=== PATIENT | female | born 1945 | race Caucasian/White ===

== ENCOUNTER → 2016-12-24 16:58 | Outpatient (CLI) | payer MEDICARE, OTHER ==
[2016-01-13 20:31] VITALS: BMI 34.6
[~2016-12-24 16:58] MED LIST: AMBIEN5 MG PO; ASPIRIN EC81 M1 PO; ATARAX 25 MG TA25 MG PO; BUSPAR10 MG PO; FERROUS SULFAT325 MG PO; FRESHKOTE EACH EYE; HYDROCODONE-APA1 TAB PO; LIPITOR40 MG PO; MYSOLINE 50 MG50 MG PO; NEURONTIN 400400 MG PO; PRILOSEC20 MG PO; PROAIR HFA8.5 GM INH; PROZAC40 MG PO; RESTASIS EYE DR30 EA EACH EYE; SULINDAC200 MG PO; SYNTHROID50 MCG PO; TENORMIN50 MG PO; VALIUM 2 MG TAB2 MG PO; VESICARE5 MG PO; WELLBUTRIN100 MG PO
== END | disposition home or self-care (01) ==
LOC: D.MAMMO 11:30
DX: Z12.31 Encounter for screening mammogram for malignant neoplasm of breast (principal)

== ENCOUNTER 2017-05-10 13:25 | Emergency (ER) | payer MEDICARE, OTHER ==
[2016-01-13 20:31] VITALS: BMI 34.6
[2017-05-10 14:12] LABS: BASOPHILS 0.2 % (0-2); EOSINOPHILS 0 % (0-7); HEMATOCRIT 36.7 % (36.0-48.0); HEMOGLOBIN 11.6 g/dL (12-16); IMMATURE GRANULOCYTES 0.5 % (0-5); LYMPHOCYTES 12.9 % (15-50); MCH 28.7 pg (26.0-34.0); MCHC 31.6 g/dL (31.0-37.0); MCV 90.8 fL (80.0-100.0); MEAN PLATELET VOLUME 10.7 fL (7.4-10.4); MONOCYTES 6.2 % (2-11); NEUTROPHILS 80.2 % (40-80); PLATELET COUNT 215 10x3/uL (130-400); RBC 4.04 10x6/uL (4.00-5.40); RDW 15.1 % (11.5-14.5); WBC 13.2 10x3/uL (4.8-10.8)
[2017-05-10 14:25] LABS: BILIRUBIN - TOTAL 0.75 mg/dL (0.2-1.3); CALCIUM 8.5 mg/dL (8.5-10.1); CARBON DIOXIDE 26.7 mmol/L (21.0-32.0); CREATININE - SERUM 1.7 mg/dL (0.6-1.3); POTASSIUM - SERUM 3.7 mmol/L (3.5-5.1); PROTEIN - SERUM 7.2 g/dL (6.4-8.2)
[2017-05-10 18:43] LABS: APPEARANCE HAZY (CLEAR); COLOR DK YELLOW (YELLOW); SPECIFIC GRAVITY 1.015 (1.005-1.020)
[2017-05-10 18:44] LABS: BACTERIA MANY /hpf (NONE SEEN); BILIRUBIN NEGATIVE (NEGATIVE); GLUCOSE NEGATIVE (NEGATIVE); KETONE NEGATIVE (NEGATIVE); LEUKOCYTE ESTERASE 2+ (NEGATIVE); NITRITE POSITIVE (NEGATIVE); PROTEIN 1+ mg/dL (NEGATIVE); UROBILINOGEN NORMAL (NORMAL); WHITE CELLS - URINE >50 /hpf (0-5)
== END 2017-05-10 19:45 | disposition home or self-care (01) ==
LOC: D.ER 13:25
PROVIDERS: Emergency Medicine
DX: R10.9 Unspecified abdominal pain (principal); N10 Acute pyelonephritis

== ENCOUNTER 2017-05-14 17:48 | Inpatient (IN) | payer MEDICARE, OTHER ==
[~2017-05-14] VITALS: Ht 162.6 cm; Wt 101.0 kg
[~2017-05-14 17:48] MED LIST changes: +WELLBUTRIN XL150 M1 PO; -WELLBUTRIN100 MG PO
[2017-05-14 19:44] LABS: BASOPHILS 0.1 % (0-2); EOSINOPHILS 0.1 % (0-7); HEMATOCRIT 27.5 % (36.0-48.0); HEMOGLOBIN 9.1 g/dL (12-16); IMMATURE GRANULOCYTES 0.4 % (0-5); LYMPHOCYTES 8.3 % (15-50); MCH 28.6 pg (26.0-34.0); MCHC 33.1 g/dL (31.0-37.0); MCV 86.5 fL (80.0-100.0); MONOCYTES 9.6 % (2-11); NEUTROPHILS 81.5 % (40-80); PLATELET COUNT 215 10x3/uL (130-400); RBC 3.18 10x6/uL (4.00-5.40); RDW 15.3 % (11.5-14.5); WBC 13.9 10x3/uL (4.8-10.8)
[2017-05-14 20:03] LABS: ALBUMIN 2.1 g/dL (3.4-5.0); ANION GAP 12.8 mmol/L (8-16); BILIRUBIN - TOTAL 0.74 mg/dL (0.2-1.3); CALCIUM 8.3 mg/dL (8.5-10.1); CREATININE - SERUM 1.4 mg/dL (0.6-1.3); POTASSIUM - SERUM 3.8 mmol/L (3.5-5.1); PROTEIN - SERUM 6.7 g/dL (6.4-8.2)
[2017-05-14 20:37] LABS: APPEARANCE CLOUDY (CLEAR); BILIRUBIN NEGATIVE (NEGATIVE); COLOR BROWN (YELLOW); EPITHELIAL CELLS 0-5 /hpf (0-5); GLUCOSE NEGATIVE (NEGATIVE); KETONE NEGATIVE (NEGATIVE); LEUKOCYTE ESTERASE 2+ (NEGATIVE); NITRITE POSITIVE (NEGATIVE); PROTEIN 3+ mg/dL (NEGATIVE); RED CELLS - URINE 0-5 /hpf (0-5); SPECIFIC GRAVITY 1.015 (1.005-1.020); UROBILINOGEN NORMAL (NORMAL); WHITE CELLS - URINE >50 /hpf (0-5)
[2017-05-14 20:38] LABS: BACTERIA MANY /hpf (NONE SEEN)
[2017-05-14 23:14] VITALS: BMI 34.4
--- NOTE | 2017-05-14 23:15 | NUR ---
PT AAOX3. ADMINISTERED ZITHROMAX PO AT THIS TIME. PT DENIES NEEDS. BED LOW. PHONE AND CALL LIGHT IN REACH. SRX2.
[2017-05-14] MEDS ORDERED: FRESHKOTE EACH EYE (23:30)
[2017-05-14] MEDS ORDERED: ACETAMINOPHEN325 MG PO (23:32)
--- NOTE | 2017-05-15 00:35 | NUR ---
PT RESTING QUIETLY AT THIS TIME WITH EYES CLOSED. RESPIRATIONS EVEN, NON-LABORED. NO ACUTE DISTRESS NOTED AT THIS TIME. BED LOW. PHONE AND CALL LIGHT IN REACH. SRX2.
[2017-05-15 00:59] VITALS: BP 96/39
--- NOTE | 2017-05-15 04:10 | NUR ---
NEW BAG OF FLUIDS HUNG, PT IN BED, WITH EYES CLOSED, AT BEDSIDE. BED LOW AND LOCKED, BEDSIDE RAILS X2, CALL LIGHT IN REACH, NAD NOTED, WILL CONTINUE TO MONITOR.
--- NOTE | 2017-05-15 07:42 | NUR ---
0710-AWAKE, COMPLATINTS OF COUGHING UP CLEAR PHLEM. ON 2L PER NC. NS INFUSING TO RIGHT HAND AT 150 CC/HR, LEFT WRIST WITH SALINE LOCK. SANTOS CATH PLACED LAST NIGHT WITH DARK COLORED URINE. AT BEDSIDE. IN REPORT, PATIENT IS INCONTINET OF BOWEL.
[2017-05-15 07:55] VITALS: BP 152/65
[2017-05-15 11:37] VITALS: Ht 162.6 cm; Wt 101.0 kg
[2017-05-15 11:44] VITALS: BP 103/49
[2017-05-15 16:00] VITALS: BP 133/52
--- NOTE | 2017-05-15 17:08 | NUR ---
PATIENT IS NOT WANTING TO EAT SUPPER. WANTS MILK BUT IS COUGHING. INFORMED PATIENT THAT IT WOULD MAKE HER PHLEM THICKEN, 7 UP GIVEN.
--- NOTE | 2017-05-15 18:33 | NUR ---
T. 103.2, 650 MG TYLENOL GIVEN ORDERED.
--- NOTE | 2017-05-15 19:20 | NUR ---
ALERT/AWAKE TALKING TO VISITORS PRESENT IN ROOM. DENIES PAIN OR ANY NEEDS. 0N 02 AT 2L/NC. RR 18 EVEN U/L. IV IN R HAND WITH NS INFUSING AT 125ML/HR. L WRIST IV INTACT SL. SANTOS DRAINING DK URINE. HAS CALL LIGHT IN REACH FOR ANY NEEDS.
[2017-05-15 21:00] VITALS: BP 109/51
--- NOTE | 2017-05-15 22:45 | NUR ---
REQUESTED MORE ICE WATER, LIGHTS OFF AND DOOR CLOSED TO SLEEP. HER IS STAYING THE NIGHT IN RECLINER.
[2017-05-16 04:00] VITALS: BP 140/72
--- NOTE | 2017-05-16 04:00 | NUR ---
CHANGED FOR INCONTINENCE OF STOOL. TOOK SAMPLE TO LAB PER ORDER.
[2017-05-16 05:34] LABS: BASOPHILS 0.1 % (0-2); EOSINOPHILS 1.1 % (0-7); HEMATOCRIT 27.4 % (36.0-48.0); HEMOGLOBIN 8.8 g/dL (12-16); IMMATURE GRANULOCYTES 0.3 % (0-5); LYMPHOCYTES 11.7 % (15-50); MCHC 32.1 g/dL (31.0-37.0); MCV 87.3 fL (80.0-100.0); MEAN PLATELET VOLUME 10.7 fL (7.4-10.4); MONOCYTES 8.4 % (2-11); NEUTROPHILS 78.4 % (40-80); RBC 3.14 10x6/uL (4.00-5.40); RDW 15.8 % (11.5-14.5); WBC 12.6 10x3/uL (4.8-10.8)
[2017-05-16 05:35] LABS: PLATELET COUNT 261 10x3/uL (130-400)
[2017-05-16 05:53] LABS: ALBUMIN 1.8 g/dL (3.4-5.0); ANION GAP 12.9 mmol/L (8-16); BILIRUBIN - TOTAL 0.47 mg/dL (0.2-1.3); CALCIUM 8.1 mg/dL (8.5-10.1); CARBON DIOXIDE 25.3 mmol/L (21.0-32.0); PROTEIN - SERUM 6.1 g/dL (6.4-8.2)
[2017-05-16 05:58] LABS: CREATININE - SERUM 0.8 mg/dL (0.6-1.3); POTASSIUM - SERUM 3.2 mmol/L (3.5-5.1)
--- NOTE | 2017-05-16 07:53 | NUR ---
0720-AM ROUNDING DONE WITH PATIENT FEBRILE THIS AM AT 100.7. SANTOS CATH PATENT WITH CLEAR YELLOW URINE (MUCH BETTER THAN YESTERDAY). SPOUSE AT BEDSIDE. LEFT HAND SEEN WITH SALINE LOCK. COMPLAINTS OF BLOOD COMING FROM NOSE (O2 AT 2L PER NC) HUM O2 PLACED ON IT TO SEE IF THIS WILL HELP ANY. RIGHT WRIST SEEN WITH NS INFUSING AT 125 CC/HR. WILL MONITOR.
[2017-05-16 08:00] VITALS: BP 171/75
--- NOTE | 2017-05-16 08:14 | HP ---
PATIENT: MARY ANNE UGARTE [facility] MEDICAL RECORD: [id number] ACCOUNT: [id number] LOCATION:[address] : [birth year] ADMISSION DATE: 05/14/17 HISTORY AND PHYSICAL EXAMINATION DATE OF ADMISSION: 05/14/2017 CHIEF COMPLAINT: Fever. HISTORY OF PRESENT ILLNESS: The patient is a 71-year-old white female who has been ill for over a week. She apparently became ill last weekend, running fever, having urgency and frequency, presented to the Emergency Room earlier in the week, was given oral antibiotics, but states antibiotics made her very ill. She had nausea and vomiting, presented back to the Emergency Room where she was found to be quite ill with an elevated temperature, as well as white count and hypotension. It was felt that the patient warranted admission. PAST MEDICAL HISTORY: Significant that she has had tonsillectomy and carpal tunnel syndrome. She has had hypertension, hyperlipidemia, rheumatoid arthritis, chronic vertigo, depression and tachycardia. She had a left wrist carpal tunnel replacement. She had a right knee replacement. FAMILY HISTORY: Mother and father both had hypertension. Father had a CVA. SOCIAL HISTORY: The patient is currently . She is a mother of 4. She denies any ethanol, tobacco use or abuse. ALLERGIES: None. MEDICATIONS: She is on aspirin 81 mg once a day, atenolol 50 mg 1 p.o. daily, atorvastatin 40 mg 1 p.o. at bedtime, Wellbutrin 150 mg XL 1 p.o. daily, BuSpar 15 mg p.o. b.i.d. She is on Valium 1 mg p.o. q.12 hours for chronic dizziness, FreshKote 2%/0.9%/1.8% drop in the eyes as needed, gabapentin 400 mg t.i.d., hydrocodone 5/325 one every 4 hours p.r.n. severe pain, levothyroxine 50 mcg 1 p.o. daily, omeprazole 20 mg 1 p.o. daily, primidone 50 mg 1 in the morning and 3 at night, ProAir 2 puffs q.4 hours p.r.n. shortness of breath, Restasis 0.05% one drop daily, sulindac 200 mg p.o. b.i.d. and Detrol 4 mg p.o. daily. REVIEW OF SYSTEMS: CONSTITUTIONAL: She denies any headaches, seizures, or syncope. She denies change in visual or auditory acuity. PULMONARY: She denies any shortness of breath. She has had mild cough. CARDIOVASCULAR: She has had no palpitations. GASTROINTESTINAL: No chronic nausea, vomiting, melena, or hematochezia. GENITOURINARY: No urgency, frequency, or dysuria. PHYSICAL EXAMINATION: VITAL SIGNS: In the Emergency Room, her temperature was 99, her pulse was 90, respirations 20 and blood pressure 98/42. GENERAL: She is alert. She is oriented times 3. HEENT: Head is normocephalic. No lesions. Ears: TMs clear. Eyes: Pupils are equal, round and reactive to light. Extraocular movements intact. Her nasal cavity, oral cavity and oropharynx are clear. NECK: Supple. There is no adenopathy. HEART: Has a regular rate and rhythm without murmurs, gallops, or rubs. HISTORY AND PHYSICAL [id number] SHANELMARY ANNEBRIE RAMIREZ LUNGS: Clear. ABDOMEN: Soft, bowel sounds are positive. She does have suprapubic tenderness. LABORATORY DATA: White count elevated at 13.9, hemoglobin 9.1 and hematocrit is 27.5. Her platelets are 215. Sodium 133, potassium 3.8, chloride is 99, CO2 is 25, BUN is 26, creatinine 1.4 and glucose is 144. Urinalysis show greater than 50 wbc's per high power field, many bacteria. ASSESSMENT: 1. He has acute pyelonephritis with hypotension, possible early sepsis. 2. History of anemia, chronic rheumatoid arthritis, depression, anxiety, chronic vertigo and gastroesophageal reflux. PLAN: The patient will be admitted. Chest x-ray will be obtained. She will be placed on Rocephin 1 gram q.24 hours as well as Zithromax 250 mg IV q.24 hours. We will have blood cultures and urine cultures. Give normal saline 125 cc per hour. Continue to evaluate. TRANSINT:[id number] Voice Confirmation ID: [id number] DOCUMENT ID: [id number] CANDIDO NETTLES MD at 0814 CC: [id number] DICTATION DATE: 05/15/17826 REGISTRY NP: 05/15/17 1112 ADM IN [place] [id number] [place] [address]
--- NOTE | 2017-05-16 11:13 | NUR ---
1100-TEMP NOW 97.9 ORAL. PATIENT HAD THREE BLANKETS ON HERE AGAIN, COMPLAINTS OF SLIGHT HEADACHE, ICE PACK GIVEN. WILL CONTINUE TO MONITOR. 2ND INFUSION OF POTASSIUM BEING GIVEN.
[2017-05-16 11:45] VITALS: BP 118/57
[2017-05-16 15:56] VITALS: BP 143/71
--- NOTE | 2017-05-16 18:26 | NUR ---
PATIENT HAS BEEN AFEBRILE THIS AFTERNOON, LARGE OUTPUT FROM SANTOS CATH. URINE IS CLEAR YELLOW. WILL MONITR
--- NOTE | 2017-05-16 19:31 | NUR ---
AWAKE/ALERT DENIES PAIN OR ANY NEEDS. HAS 02 AT 2L/NC. RR EVEN U/L. IV'S IN R WRIST WITH NS INFUSING AT 125ML/HR AND L HAND SL. ORIENTED TO CALL LIGHT FOR ANY NEEDS. LEFT DOOR OPEN TO CLOSELY MONITOR.
[2017-05-16 21:30] VITALS: BP 140/64
--- NOTE | 2017-05-16 21:38 | NUR ---
ADMIN SCHED MEDS WITH SIPS OF WATER SWALLOWING WITHOUT DIFFICULTY AND EYE DROPS. CLEANED FOR INCONTINENCE OF DIARRHEA.
[2017-05-17 00:55] VITALS: BP 130/55
--- NOTE | 2017-05-17 01:07 | NUR ---
ADMIN TYLENOL 650MG FOR ELEVATED TEMP 101.7 F. ASYMPTOMATIC AND DENIES ANY DISCOMFORT. WILL CONT TO MONITOR.
[2017-05-17 05:41] LABS: BASOPHILS 0.1 % (0-2); EOSINOPHILS 0.7 % (0-7); HEMOGLOBIN 9.2 g/dL (12-16); IMMATURE GRANULOCYTES 0.5 % (0-5); MCH 29.3 pg (26.0-34.0); MCHC 34.1 g/dL (31.0-37.0); MEAN PLATELET VOLUME 10.7 fL (7.4-10.4); MONOCYTES 6.8 % (2-11); NEUTROPHILS 79.9 % (40-80); PLATELET COUNT 304 10x3/uL (130-400); RBC 3.14 10x6/uL (4.00-5.40); RDW 15.6 % (11.5-14.5); WBC 13.3 10x3/uL (4.8-10.8)
[2017-05-17 05:56] LABS: CALCIUM 7.6 mg/dL (8.5-10.1); CARBON DIOXIDE 25.9 mmol/L (21.0-32.0); CREATININE - SERUM 0.8 mg/dL (0.6-1.3)
[2017-05-17 06:06] LABS: ANION GAP 10.1 mmol/L (8-16)
--- NOTE | 2017-05-17 06:45 | NUR ---
RECHECKED TEMP AT 98.4. ADMIN LASIX 40 MG IV X 1 PER ORDER. NO NEEDS OR DISCOMFORTS VOICED. HER IS PRESENT IN ROOM.
[2017-05-17 08:00] VITALS: BP 121/60
[2017-05-17 11:48] VITALS: BP 117/56
[2017-05-17 16:00] VITALS: BP 148/65
--- NOTE | 2017-05-17 19:45 | NUR ---
RECEIVED REPORT, PT STATES IT FINALLY GOT DISPOSITION CLERK ROOM, DENIES ANY NEEDS, BED IS LOW, SRX2, CALL LIGHT IN REACH, WILL CONTINUE PLAN OF CARE
[2017-05-17 20:16] VITALS: BP 151/60
[2017-05-18 00:15] VITALS: BP 114/54
[2017-05-18 02:26] LABS: APPEARANCE CLOUDY (CLEAR); BILIRUBIN NEGATIVE (NEGATIVE); COLOR RED (YELLOW); GLUCOSE NEGATIVE (NEGATIVE); KETONE NEGATIVE (NEGATIVE); LEUKOCYTE ESTERASE 2+ (NEGATIVE); NITRITE NEGATIVE (NEGATIVE); PROTEIN 2+ mg/dL (NEGATIVE); UROBILINOGEN NORMAL (NORMAL)
[2017-05-18 02:28] LABS: BACTERIA FEW /hpf (NONE SEEN); EPITHELIAL CELLS 0-5 /hpf (0-5); RED CELLS - URINE 25-50 /hpf (0-5)
--- NOTE | 2017-05-18 03:07 | NUR ---
ASSESSMENT COMPLETE, SEE FLOWSHEET, PT SLEEPING NO DISTRESS NOTICED, BED IS LOW, SRX2, AT BEDSIDE, CALL LIGHT IN REACH, WILL CONTINUE TO MONITOR
[2017-05-18 04:59] LABS: BASOPHILS 0.1 % (0-2); EOSINOPHILS 1.4 % (0-7); HEMATOCRIT 25.8 % (36.0-48.0); HEMOGLOBIN 8.2 g/dL (12-16); IMMATURE GRANULOCYTES 0.5 % (0-5); LYMPHOCYTES 17.9 % (15-50); MCH 27.7 pg (26.0-34.0); MCHC 31.8 g/dL (31.0-37.0); MCV 87.2 fL (80.0-100.0); MEAN PLATELET VOLUME 10.4 fL (7.4-10.4); MONOCYTES 6.3 % (2-11); NEUTROPHILS 73.8 % (40-80); PLATELET COUNT 312 10x3/uL (130-400); RBC 2.96 10x6/uL (4.00-5.40); RDW 15.7 % (11.5-14.5); WBC 11.1 10x3/uL (4.8-10.8)
[2017-05-18 05:10] LABS: ANION GAP 11.6 mmol/L (8-16); CALCIUM 7.9 mg/dL (8.5-10.1); CARBON DIOXIDE 28.1 mmol/L (21.0-32.0); CREATININE - SERUM 0.8 mg/dL (0.6-1.3)
[2017-05-18 05:14] LABS: POTASSIUM - SERUM 3.7 mmol/L (3.5-5.1)
[2017-05-18 05:15] VITALS: BP 115/52
--- NOTE | 2017-05-18 07:05 | NUR ---
RECEIVED REPORT. ASSUMED CARE OF PATIENT. ASSISTED TO PULL PATIENT UP IN BED AT THIS TIME. ALERT/ORIENTED. CALL LIGHT WITHIN REACH. SPOUSE AT BEDSIDE. RESP EVEN AND UNLABORED. DENIES NEEDS. NO DISTRESS.
--- NOTE | 2017-05-18 07:40 | NUR ---
BLOOD CONSENTS SIGNED AND PLACED ON CHART.
[2017-05-18 07:58] VITALS: BP 146/62
--- NOTE | 2017-05-18 11:59 | NUR ---
SITTING UP IN CHAIR. AGUEDA WELL. NO DISTRESS.
--- NOTE | 2017-05-18 14:17 | NUR ---
Nutrition follow-up: Diet: Regular PO intake 100% most meals Labs reviewed +BM, loose Wt stable RDN following.
--- NOTE | 2017-05-18 17:50 | NUR ---
TOLERATING BLOOD WELL.
[2017-05-18 17:54] VITALS: BP 128/63
--- NOTE | 2017-05-18 19:35 | NUR ---
RECEIVED REPORT. ASSUMED CARE OF PT, DENIES ANY NEEDS, BED IS LOW, SRX2, CALL LIGHT IN REACH, WILL CONTINUE PLAN OF CARE
[2017-05-18 19:55] VITALS: BP 123/72
[2017-05-19 00:48] VITALS: BP 147/62
--- NOTE | 2017-05-19 02:02 | NUR ---
ASSESSMENT COMPLETE, SEE FLOWSHEET, PT SLEEPING, BED IS LOW, SRX2, CALL LIGHT IN REACH, WILL CONTINUE TO MONITOR
[2017-05-19 04:52] VITALS: BP 137/69
[2017-05-19 05:55] LABS: BASOPHILS 0.1 % (0-2); EOSINOPHILS 1.7 % (0-7); IMMATURE GRANULOCYTES 0.5 % (0-5); LYMPHOCYTES 17.4 % (15-50); MCH 28.7 pg (26.0-34.0); MCHC 32.8 g/dL (31.0-37.0); MCV 87.3 fL (80.0-100.0); MEAN PLATELET VOLUME 10.2 fL (7.4-10.4); MONOCYTES 6.6 % (2-11); NEUTROPHILS 73.7 % (40-80); PLATELET COUNT 344 10x3/uL (130-400); WBC 10.9 10x3/uL (4.8-10.8)
[2017-05-19 06:06] LABS: HEMATOCRIT 31.7 % (36.0-48.0); HEMOGLOBIN 10.4 g/dL (12-16); RBC 3.63 10x6/uL (4.00-5.40)
[2017-05-19 06:13] LABS: CALCIUM 8.7 mg/dL (8.5-10.1); CARBON DIOXIDE 29.4 mmol/L (21.0-32.0); CREATININE - SERUM 0.8 mg/dL (0.6-1.3)
[2017-05-19 06:18] LABS: POTASSIUM - SERUM 4.4 mmol/L (3.5-5.1)
[2017-05-19] MEDS ORDERED: LEVAQUIN500 MG PO (06:58)
--- NOTE | 2017-05-19 07:35 | NUR ---
AM ROUNDS - PT APPEARS TO BE SLEEPING IN BED WITH EQUAL AND NON LABORED BREATHING. SANTOS DRAINING CLEAR YELLOW. IV TO LEFT WRIST WITH NS @ 125CC/HR. 2L VIA NC. BED AT LOWEST PPOSITION, CALL SCHULTE IN USE/REACH, ADULT SPECIALIST AILS UP X2. WILL CONTINUE TO MONITOR
--- NOTE | 2017-05-19 07:46 | NUR ---
Patient Name: MARY ANNE UGARTE Admission Status: ER Accout number: [id number] Admission Date: 05-14-2017 : 1945 Admission Diagnosis:TUBULO-INTERSTITIAL NEPHRITIS, NOT SPCF ACUTE OR CHR Attending: PATRICK Current LOS: 5 Anticipated DC Date: 05-19-2017 Planned Disposition: Home with Home Health Primary Insurance: MEDICARE A & B Discharge Planning Comments: CM MET WITH PATIENT IN REGARDS TO DISCHARGE PLANNING/NEEDS. PATIENT STATED SHE LIVES AT HOME WITH HER SPOUSE AND THAT HER SON IS CURRENTLY HERE TO HELP REMODEL THE HOUSE. THEY HAVE BUILT A RAMP FOR EASIER ACCESS IN THE HOME, AND HE IS IN THE PROCESS OF MAKING THEM A NEW BEDROOM WITH EASIER ACCESS BATHROOM CLOSER TO THE FRONT DOOR. SHE STATED THAT SHE FEELS HER HOME ENVIRONMENT IS SAFE TO RETURN TO. SHE SAID THAT HER SPOUSE, CANDIDO UGARTE, WILL BE HER TRANSPORTATION HOME. SHE SAID THAT SHE WAS TOLD WE COULD SET HER UP WITH SOMEONE TO COME OUT AND MONITOR HER BLOOD PRESSURE AND PHYSICAL THERAPY TO HELP HER GET HER STRENGTH BACK. EXPLAINED THAT I WOULD CALL AND GET THIS ORDER FROM DR NETTLES SINCE HE DID NOT INCLUDE IT IN HIS DISCHARGE ORDER. SHE DENIES ANY FURTHER NEEDS. SHE SAID SHE HAS A 4 LEG CANE AND A 1 LEG CANE AT HOME AND SHE HAS 2 REGULAR WALKERS AND 2 ROLLING WALKERS, AND 2 ROLLING WALKERS WITH SEATS AT HOME. THAT WAY HER AND HER HAVE THEM IF THEY NEED THEM AND DEPENDING ON WHICH VEHICLE THEY ARE IN, THEY WILL FIT. CM WILL CONTINUE TO ASSIST NEEDED UNTIL PATIENT LEAVES LATER TODAY. IMM SERVED AND SIGNED. Patient Care Specialist: Daina Harris Is the patient Alert and Oriented? Yes * How many steps to enter\exit or inside your home? 0, RAMP * PCP DR NETTLES * Pharmacy [facility] 7 * Preadmission Environment Home with Family * ADLs Independent * Equipment Cane Rolling Walker Shower Chair Walker Wheelchair * List name and contact numbers for known caregivers / representatives who currently or will assist patient after discharge: CANDIDO UGARTE, SPOUSE, * Additional services required to return to the preadmission environment? No * Can the patient safely return to the preadmission environment? Yes * Has this patient been hospitalized within the prior 30 days at any hospital? No
[2017-05-19 08:57] VITALS: BP 149/69
--- NOTE | 2017-05-19 10:22 | NUR ---
HAVE SPOKE WITH DR NETTLES NURSE ISHAN. SHE SAID THAT SHE WAS GIVEN HOME HEALTH ORDERS WITH PHYSICAL THERAPY. ORDERS ENTERED. SPOKE WITH BRITTANEY AT [facility] ABOUT THE REFERRAL, INFORMATION SENT. SHE STATED THAT THEY WOULD SEE HER TOMORROW.
[2017-05-19 12:00] VITALS: BP 148/77
--- NOTE | 2017-05-19 15:01 | NUR ---
D/C - D/C WRITTEN AND VERBAL INSTRUCTIONS GIVEN TO PT AND PT'S . CIV TO LEFT WRIST REMOVED, CATH TIP INTACT. PT LEFT FLOOR VIA WHEELCHAIR WITH VOLUNTEER. WILL D/C
--- NOTE | 2017-05-19 15:05 | NUR ---
1000 - SANTOS CATH REMOVED. 1400CC URINE.
== END 2017-05-19 14:00 | disposition home health service (06) | DRG 872 ==
LOC: D.ER 17:48 → D.M2 20:37
PROVIDERS: Physician Assistant Medical; ADMIT Family Medicine
PROC: 0T9B70Z Drainage of Bladder with Drainage Device, Via Natural or Artificial Opening (ICD-10-PCS; principal; 2017-05-14)
DX: A41.9 Sepsis, unspecified organism (principal); N10 Acute pyelonephritis; I95.9 Hypotension, unspecified; K21.9 Gastro-esophageal reflux disease without esophagitis; I10 Essential (primary) hypertension; E78.5 Hyperlipidemia, unspecified; M06.9 Rheumatoid arthritis, unspecified; F32.9 Major depressive disorder, single episode, unspecified; D64.9 Anemia, unspecified

== ENCOUNTER 2017-05-30 23:31 | Inpatient (IN) | payer MEDICARE, OTHER ==
[~2017-05-30] VITALS: Ht 162.6 cm; Wt 101.2 kg
[~2017-05-30 23:31] MED LIST changes: +ACETAMINOPHEN325 MG PO; +LEVAQUIN500 MG PO
[2017-05-31 00:07] LABS: APPEARANCE CLOUDY (CLEAR); BILIRUBIN NEGATIVE (NEGATIVE); COLOR YELLOW (YELLOW); GLUCOSE NEGATIVE (NEGATIVE); KETONE NEGATIVE (NEGATIVE); LEUKOCYTE ESTERASE 2+ (NEGATIVE); NITRITE NEGATIVE (NEGATIVE); PROTEIN 1+ mg/dL (NEGATIVE); SPECIFIC GRAVITY 1.005 (1.005-1.020); UROBILINOGEN NORMAL (NORMAL)
[2017-05-31 00:13] LABS: BACTERIA MANY /hpf (NONE SEEN); EPITHELIAL CELLS NSEEN /hpf (0-5); WHITE CELLS - URINE >50 /hpf (0-5)
[2017-05-31 00:48] LABS: BASOPHILS 0.1 % (0-2); EOSINOPHILS 1.1 % (0-7); HEMOGLOBIN 11.4 g/dL (12-16); IMMATURE GRANULOCYTES 0.3 % (0-5); LYMPHOCYTES 12.4 % (15-50); MCH 28.9 pg (26.0-34.0); MCHC 31.7 g/dL (31.0-37.0); MCV 91.1 fL (80.0-100.0); MEAN PLATELET VOLUME 10.7 fL (7.4-10.4); MONOCYTES 8.2 % (2-11); NEUTROPHILS 77.9 % (40-80); RBC 3.95 10x6/uL (4.00-5.40); RDW 15.7 % (11.5-14.5); WBC 10.8 10x3/uL (4.8-10.8)
[2017-05-31 00:50] LABS: PLATELET COUNT 264 10x3/uL (130-400)
[2017-05-31 01:00] LABS: ALBUMIN 2.8 g/dL (3.4-5.0); ANION GAP 13.7 mmol/L (8-16); BILIRUBIN - TOTAL 0.55 mg/dL (0.2-1.3); CALCIUM 8.6 mg/dL (8.5-10.1); CARBON DIOXIDE 28.2 mmol/L (21.0-32.0); CREATININE - SERUM 1.1 mg/dL (0.6-1.3); POTASSIUM - SERUM 3.9 mmol/L (3.5-5.1); PROTEIN - SERUM 7.1 g/dL (6.4-8.2)
--- NOTE | 2017-05-31 03:17 | NUR ---
PT ARRIVED VIA STRETCHER FROM ER WITH DX UTI/SEPSIS. NO DISTRESS NOTED. SPOUSE AT BEDSIDE.
[2017-05-31] MEDS ORDERED: ZOFRAN ODT4 MG/UDTAB PO (03:44)
[2017-05-31 04:00] VITALS: BP 106/48; BMI 37.5
--- NOTE | 2017-05-31 04:24 | NUR ---
PT INCONTINENT OF URINE ONADMISSION. INCONTINENT CARE DONE. GROIN AREA EXCORIATED. CASSY'S APPLIED. ADMISSION ASSESSMENT, HISTORY AND HOME MED LIST COMPLETED. PT ALERT AND ORIENTED. IV TO LAC WITH NS AT 75CC/HR. PT DENIES ANY DISCOFORT. SR UP X2, CALL LIGHT WITHI ERACH, BED ALARM ON AND SPOUSE AT BEDSIDE.
--- NOTE | 2017-05-31 04:56 | NUR ---
PT RESTING WITH EYES CLOSED. RESP EVEN AND REGULAR. SR UP X2, CALL LIGHT WITHIN REACH.
--- NOTE | 2017-05-31 06:29 | NUR ---
VSS. PT DENIES ANY DISCOMFORT. NEEDS MET; WILL CONTINUE TO MONITOR.
--- NOTE | 2017-05-31 06:46 | NUR ---
PT INCONTINENT OF URINE. INCONTINENT CARE DONE. PT ABLE TO ROLL SELF IN BED WITHOUT DIFFICULTY. SPOUSE AT BEDSIDE.
[2017-05-31 09:13] VITALS: BP 159/90
[2017-05-31 11:59] VITALS: BP 117/64
--- NOTE | 2017-05-31 15:28 | NUR ---
Patient Name: MARY ANNE UGARTE Admission Status: ER Accout number: [id number] Admission Date: 05-31-2017 : 1945 Admission Diagnosis: Attending: PATRICK Current LOS: 1 Anticipated DC Date: Planned Disposition: Home with Home Health Primary Insurance: MEDICARE A & B Discharge Planning Comments: CM MET WITH PATIENT TO DISCUSS DISCHARGE PLANNING/NEEDS. PATIENT STATED THAT SHE LIVES AT HOME WITH HER SPOUSE AND PLANS TO RETURN HERE. SHE SAID THAT HER SON HAS COMPLETED THE RENOVITATION AND HAS RETURNED TO [place]. SHE STATED THAT HER SPOUSE WILL BE HER TRANSPORTATION HOME, AND THAT HER HOME ENVIRONMENT IS SAFE TO RETURN TO. SHE STATED SHE IS STILL USING [facility] AND WANTS TO GO BACK TO THEM WHEN SHE GOES HOME. SHE CONTINUES WITH [employer] AND DENIES THE NEED FOR ANYTHING ELSE. CM WILL CONTINUE TO FOLLOW AND ASSIST NEEDED. Well Testing Operator: Daina Harris Is the patient Alert and Oriented? Yes * How many steps to enter\exit or inside your home? 0 * PCP DR NETTLES * Pharmacy [facility] 7 * Preadmission Environment Home with Family * ADLs Independent * Equipment Cane Rolling Walker Shower Chair Walker Wheelchair * List name and contact numbers for known caregivers / representatives who currently or will assist patient after discharge: CANDIDO UGARTE, SPOUSE, * Community resources currently utilized Home Health * Please name any agencies selected above. [facility] * Additional services required to return to the preadmission environment? No * Can the patient safely return to the preadmission environment? Yes * Has this patient been hospitalized within the prior 30 days at any hospital? Yes
--- NOTE | 2017-05-31 19:05 | NUR ---
ALERT/AWAKE, ORIENTED X 4. DENIES PAIN OR ANY NEEDS. IV IN L AC WITH NS INFUSING AT 75ML/HR. HER IS PRESENT IN ROOM. NO QUESTIONS OR CONCERNS VOICED.
--- NOTE | 2017-05-31 20:20 | NUR ---
ADMIN TYLENOL 650 MG PO FOR ELEVATED TEMP 101.6 F. ADMIN SCHED MEDS AND EYE DROPS. NO OTHER NEEDS VOICED.
[2017-05-31 21:28] VITALS: BP 158/75
--- NOTE | 2017-05-31 21:30 | NUR ---
RECHECKED TEMP AT 99.0 F. DENIED AND NEEDS OR DISCOMFORTS.
[2017-06-01 00:44] VITALS: BP 120/52
--- NOTE | 2017-06-01 03:15 | NUR ---
RESTING WITH EYES CLOSED. RR 18 EVEN U/L. NO S/S OF DISCOMFORT. CL IN REACH. HER PRESENT IN ROOM.
[2017-06-01 04:44] LABS: BASOPHILS 0.1 % (0-2); EOSINOPHILS 1.4 % (0-7); HEMATOCRIT 31.3 % (36.0-48.0); HEMOGLOBIN 10.2 g/dL (12-16); IMMATURE GRANULOCYTES 0.4 % (0-5); LYMPHOCYTES 16.8 % (15-50); MCH 29.7 pg (26.0-34.0); MCHC 32.6 g/dL (31.0-37.0); MCV 91.3 fL (80.0-100.0); MEAN PLATELET VOLUME 10.2 fL (7.4-10.4); MONOCYTES 11.4 % (2-11); NEUTROPHILS 69.9 % (40-80); PLATELET COUNT 229 10x3/uL (130-400); RBC 3.43 10x6/uL (4.00-5.40); WBC 10.5 10x3/uL (4.8-10.8)
[2017-06-01 04:54] LABS: ANION GAP 11.3 mmol/L (8-16); CARBON DIOXIDE 28.2 mmol/L (21.0-32.0); CREATININE - SERUM 1.1 mg/dL (0.6-1.3); POTASSIUM - SERUM 3.5 mmol/L (3.5-5.1)
[2017-06-01 05:25] VITALS: BP 121/47
[2017-06-01 08:00] VITALS: BP 91/32
[2017-06-01 12:00] VITALS: BP 118/73
[2017-06-01 16:00] VITALS: BP 98/45
--- NOTE | 2017-06-01 18:47 | NUR ---
ALERT AND ORIENTED X4. RESTING IN BED. NO CHANGE. AFEBRIAL 98.4. PREPARE SHIFT CHANGE REPORT. BED LOCKED AND LOW. CALL LIGHT IN REACH. TWO SIDERAILS UP. BED ALARM ON. REFUSE SCDs.
--- NOTE | 2017-06-01 21:00 | NUR ---
ADMIN SCHED MEDS AND EYE DROPS. FLUSHED L AC IV. DENIES PAIN OR ANY NEEDS. HER IS PRESENT IN ROOM.
[2017-06-01 21:41] VITALS: BP 106/45
--- NOTE | 2017-06-01 23:00 | NUR ---
SUPERVISORY IT SPECIALIST CLEANING AND CHANGING BED FROM INCONTINENCE OF URINE. NO OTHER NEEDS VOICED.
[2017-06-02 01:03] VITALS: BP 128/52
--- NOTE | 2017-06-02 03:30 | NUR ---
CHANGED PAD FROM INCONTINENCE OF URINE. NO OTHER NEEDS VOICED.
[2017-06-02 05:36] VITALS: BP 129/53
[2017-06-02 05:36] LABS: BASOPHILS 0.1 % (0-2); EOSINOPHILS 3.6 % (0-7); HEMATOCRIT 30.8 % (36.0-48.0); HEMOGLOBIN 9.8 g/dL (12-16); IMMATURE GRANULOCYTES 0.1 % (0-5); LYMPHOCYTES 20.4 % (15-50); MCH 28.7 pg (26.0-34.0); MCHC 31.8 g/dL (31.0-37.0); MCV 90.3 fL (80.0-100.0); MEAN PLATELET VOLUME 10.6 fL (7.4-10.4); MONOCYTES 10.7 % (2-11); NEUTROPHILS 65.1 % (40-80); PLATELET COUNT 219 10x3/uL (130-400); RBC 3.41 10x6/uL (4.00-5.40); RDW 15.8 % (11.5-14.5)
[2017-06-02 05:43] LABS: WBC 7.3 10x3/uL (4.8-10.8)
[2017-06-02 05:58] LABS: ALBUMIN 2.2 g/dL (3.4-5.0); ANION GAP 12.3 mmol/L (8-16); BILIRUBIN - TOTAL 0.3 mg/dL (0.2-1.3); CARBON DIOXIDE 26.4 mmol/L (21.0-32.0); CREATININE - SERUM 0.9 mg/dL (0.6-1.3); POTASSIUM - SERUM 3.7 mmol/L (3.5-5.1); PROTEIN - SERUM 6.2 g/dL (6.4-8.2)
[2017-06-02 08:00] VITALS: BP 99/40
--- NOTE | 2017-06-02 09:19 | NUR ---
ADMINISTERED AM MEDS, PT UP TO CHAIR, LINEN CHANGE PROVIDED BY SHELLFISH MANAGER. PT DENIES ANY NEEDS AT THIS TIME. CALL LIGHT IN REACH, NAD NOTED, WILLC ONTINUE TO MONITOR.
[2017-06-02 12:00] VITALS: BP 112/55
[2017-06-02 13:57] VITALS: Ht 162.6 cm; Wt 101.2 kg
--- NOTE | 2017-06-02 15:04 | NUR ---
PT IN BED, SCHEDULED MEDS GIVEN. PT DENIES ANY NEEDS AT THIS TIME. CALL LIGHT IN REACH, NAD NOTED, WILL CONTINUE TO MONITOR.
[2017-06-02 19:00] VITALS: BP 146/64
--- NOTE | 2017-06-02 19:35 | NUR ---
RECEIVED REPORT, WILL ASSUME CARE OF PT, PT DENIES ANY NEEDS, SAYS SHE IS CATCHING UP ON OLD MOVIES,BED IS LOW, SRX2, CALL LIGHT IN REACH, WILL CONTINUE PLAN OF CARE
[2017-06-03] VITALS: BP 136/58
--- NOTE | 2017-06-03 03:11 | NUR ---
MASTER FISHER AT BEDSIDE TO OBTAIN VITALS, CALL LIGHT IN REACH. WILL CONTINUE TO MONITOR.
[2017-06-03 04:00] VITALS: BP 126/63
--- NOTE | 2017-06-03 04:35 | NUR ---
ASSESSMENT COMPLETE, SEE FLOWSHEET, BED IS LOW, SRX3, CALL LIGHT IN REACH, AT BEDSIDE, WILL CONTINUE TO MONITOR
[2017-06-03 05:18] LABS: BASOPHILS 0.1 % (0-2); EOSINOPHILS 6.1 % (0-7); HEMATOCRIT 31.4 % (36.0-48.0); HEMOGLOBIN 10.2 g/dL (12-16); IMMATURE GRANULOCYTES 0.3 % (0-5); LYMPHOCYTES 25.6 % (15-50); MCH 29.2 pg (26.0-34.0); MCHC 32.5 g/dL (31.0-37.0); MEAN PLATELET VOLUME 10.7 fL (7.4-10.4); MONOCYTES 9.4 % (2-11); NEUTROPHILS 58.5 % (40-80); PLATELET COUNT 229 10x3/uL (130-400); RBC 3.49 10x6/uL (4.00-5.40); RDW 15.6 % (11.5-14.5); WBC 7.2 10x3/uL (4.8-10.8)
[2017-06-03 05:36] LABS: ANION GAP 12.6 mmol/L (8-16); CALCIUM 8.3 mg/dL (8.5-10.1); CARBON DIOXIDE 27.8 mmol/L (21.0-32.0); CREATININE - SERUM 0.9 mg/dL (0.6-1.3); POTASSIUM - SERUM 3.4 mmol/L (3.5-5.1)
[2017-06-03] MEDS ORDERED: CEFUROXIME250 MG PO (06:55)
[2017-06-03 08:15] VITALS: BP 139/69
--- NOTE | 2017-06-03 10:15 | NUR ---
PATEINT ASSISTED UP TO THE SHOWER AFTER HER IV REMOVED FROM THE LEFT AC. NO BLEEDING NOTED. ORAL MEDICATIONS TAKEN WITHOUT DIFFICULTY.
--- NOTE | 2017-06-03 13:50 | NUR ---
REVIEWED DISCHARGE INSTRUCTIONS WITH THE PATEINT. SHE UNDERSTANDS THAT SHE IS TO E COMMERCE STRATEGIST AN ANTIBIOTIC RX AT [facility] AND TAKE IT DIRECTED UNTIL GONE. AT THE BEDSIDE. TEACHING INFORMATION GIVEN FOR UTI. SHE WAS WHEELED OUT IN A WHEELCHAIR.
--- NOTE | 2017-06-03 14:12 | NUR ---
Patient Name: MARY ANNE UGARTE Encounter No: [id number] : 1945 Primary Insurance: MEDICARE A & B Anticipated DC Date: 06-03-2017 Planned Disposition: Home with Home Health External Planned Provider: [facility] DCP follow-up note: CM RECEIVED DISCHARGE ORDER, IMPORTANT MESSAGE PROVIDED AND EXPLAINED EARLIER BY YOUSIF RAMOS. CM FAXED DISCHARGE INFORMATION TO [employer] [facility], . CM CALLED AND NOTIFIED BRITTANEY OF [employer] AT [phone], OF PT'S DISCHARGE FOR HOME HEALTH RESUMPTION. NO FURTHER NEEDS IDENTIFIED. Harjeet Coleman, CASE MANAGEMENT
== END 2017-06-03 13:50 | disposition home health service (06) | DRG 690 ==
LOC: OBSVTIME → D.ER 23:31 → D.OPS 23:31 → OBSVTIME 05-31 03:01 → D.M2 05-31 03:01 → D.ER 05-31 03:01 → D.OPS 05-31 03:07 → D.M2 05-31 07:18
PROVIDERS: Emergency Medicine; Family Medicine; ADMIT Family Medicine
DX: N10 Acute pyelonephritis (principal); K57.92 Diverticulitis of intestine, part unspecified, without perforation or abscess without bleeding; I10 Essential (primary) hypertension; F32.9 Major depressive disorder, single episode, unspecified; E78.5 Hyperlipidemia, unspecified; K21.9 Gastro-esophageal reflux disease without esophagitis; R21 Rash and other nonspecific skin eruption; F41.9 Anxiety disorder, unspecified

== ENCOUNTER → 2017-06-18 08:19 | Outpatient (CLI) | payer MEDICARE, OTHER ==
[2017-06-02 13:57] VITALS: BMI 37.4
[~2017-06-18 08:19] MED LIST changes: +CEFUROXIME250 MG PO; +ZOFRAN ODT4 MG/UDTAB PO
== END | disposition home or self-care (01) ==
LOC: D.US 08:19 → D.CT 09:00 → D.US 10:00
DX: R31.9 Hematuria, unspecified (principal)

== ENCOUNTER → 2017-07-28 12:19 | Outpatient (CLI) | payer MEDICARE, OTHER ==
[2017-06-02 13:57] VITALS: BMI 37.4
== END | disposition home or self-care (01) ==
LOC: D.CT 12:19
DX: R10.9 Unspecified abdominal pain (principal)

== ENCOUNTER → 2017-11-18 12:02 | Outpatient (CLI) | payer MEDICARE, OTHER ==
[2017-06-02 13:57] VITALS: BMI 37.4
== END | disposition home or self-care (01) ==
LOC: D.CT 12:02
DX: R31.9 Hematuria, unspecified (principal)

== ENCOUNTER → 2018-02-18 16:43 | Outpatient (CLI) | payer MEDICARE, OTHER ==
[2017-06-02 13:57] VITALS: BMI 37.4
== END | disposition home or self-care (01) ==
LOC: D.MAMMO 01-26 10:00
DX: Z12.31 Encounter for screening mammogram for malignant neoplasm of breast (principal)

== ENCOUNTER 2018-05-24 07:23 | Day surgery (SDC) | payer MEDICARE, OTHER ==
[~2018-05-24] VITALS: Ht 162.6 cm; Wt 96.4 kg
--- NOTE | ~2018-05-24 | HP ---
PATIENT: MARY ANNE UGARTE [facility] MEDICAL RECORD: [id number] ACCOUNT: [id number] LOCATION:[place] : [birth year] ADMISSION DATE: 05/24/18 HISTORY AND PHYSICAL EXAMINATION CHIEF COMPLAINT: Here for endoscopy. HISTORY OF PRESENT ILLNESS: The patient has a history of colon polyps and is here for surveillance colonoscopy. Also, a history of gastric polyps and she is here for surveillance of upper endoscopy to see if there has been any regrowth or persistence of the polyps. The risks, possible complications and alternatives to procedure were explained to the patient. She elects to proceed. PAST MEDICAL AND SURGICAL HISTORY: Reactive airway disease; hypertension; hypothyroidism, on replacement therapy; gastroesophageal reflux. HOME MEDICATIONS: Please see the nursing list. ALLERGIES: No known drug allergies. PHYSICAL EXAMINATION: GENERAL: The patient does not appear acutely ill. She does not appear chronically ill. The entire physical examination was performed with the presence of a female nurse. VITAL SIGNS: Reviewed. EARS: External ears appear normal. EYES: Extraocular movements are intact. NECK: Trachea is midline. CHEST: No intercostal retractions. PULMONARY: Nonlabored, no stridor. ABDOMEN: No peritonitis with movement. IMPRESSION: 1. History of gastric polyps. 2. History of colon polyps. PLAN: Surveillance upper and lower endoscopies. TRANSINT:[id number] Voice Confirmation ID: [id number] DOCUMENT ID: [id number] JESSICA WASSERMAN MD at 1843 CC: CANDIDO NETTLES [id number] DICTATION DATE: 05/24/18 1006 NET ARCHITECT: 05/24/18 1027 [facility] 05/24/18 [place] [id number] [place] [id number]
--- NOTE | ~2018-05-24 | OP ---
PATIENT NAME: MARY ANNE UGARTE MEDICAL RECORD: [id number] :[birth year] LOCATION:D.OPS ADMISSION DATE: SURGEON: HUDSON WASSERMAN MD DATE OF OPERATION: 05/24/2018 PREOPERATIVE DIAGNOSES: 1. History of gastric polyposis. 2. Secondary diagnosis is history of colon polyps, in need of surveillance colonoscopy. POSTOPERATIVE DIAGNOSES: 1. History of gastric polyposis. 2. Secondary diagnosis is history of colon polyps, in need of surveillance colonoscopy. 3. Mild sigmoid diverticulosis. 4. Two colon polyps, both sessile each smaller than 1.0 cm. 5. Multiple gastric polyps. PROCEDURES: 1. Esophagogastroduodenoscopy with antral cold endoscopic biopsies. 2. Gastric hot biopsy forceps polypectomy times 1. 3. Total colonoscopy to cecum. 4. Colonic hot biopsy forceps polypectomies times 2. SURGEON: Hudson Wasserman MD SHIP MATE: None. BLOOD LOSS: Minimal. ANESTHESIA: IV sedation. COMPLICATIONS: None. The risks, possible complications, and alternatives to procedure were explained to the patient. She elects to proceed. OPERATIVE ENDOSCOPIC COURSE: The patient was conveyed to the endoscopy suite electively on 05/24/2018. IV sedation was induced by the anesthesia staff. A bite block was inserted. A gastroscope was inserted into the mouth. It was advanced easily into the hypopharynx. The esophagus was easily intubated as were the stomach and duodenum. Upon withdrawal, retroflexed and angulus views were obtained. Antral biopsies were obtained. I then performed a single gastric hot biopsy forceps polypectomy removing the largest of the sessile gastric polyps. I then ablated another 20 gastric polyps utilizing the cautery forceps. The endoscope was then withdrawn under direct vision. The patient was turned 180 degrees and placed in the Frausto position. A digital rectal examination was performed. A colonoscope was inserted through the anus. It was easily advanced to the cecum. The prep was adequate. I slowly withdrew the endoscope. I irrigated and aspirated extensively. I dragged the folds. I used a combination of normal imaging as well as narrow band imaging. Two hot biopsy forceps polypectomies were performed. A retroflexed view was obtained in OPERATIVE REPORT [id number] MARY ANNE UGARTE the rectum. I then unretroflexed the scope and removed it under direct vision. I will see the patient in my office in 2-3 weeks to discuss the results of the biopsies. I will plan for her next surveillance colonoscopy to take place in 3 years. She will not need a surveillance upper endoscopy unless she develops new symptoms such as epigastric pain or hematemesis. TRANSINT:[id number] Voice Confirmation ID: [id number] DOCUMENT ID: [id number] HUDSON WASSERMAN MD at 1612 CC: CANDIDO NETTLES [id number] DICTATION DATE: 05/24/18 1058 MANAGER ACQUISITION: 05/24/18 1301 [facility] 05/24/18 [place] [id number] [place] [address]
[2018-05-24 07:42] LABS: BASOPHILS 0.3 % (0-2); EOSINOPHILS 2.2 % (0-7); HEMATOCRIT 41.1 % (36.0-48.0); HEMOGLOBIN 13.7 g/dL (12-16); IMMATURE GRANULOCYTES 0.1 % (0-5); LYMPHOCYTES 28.1 % (15-50); MCH 31.1 pg (26.0-34.0); MCHC 33.3 g/dL (31.0-37.0); MCV 93.2 fL (80.0-100.0); MEAN PLATELET VOLUME 10.3 fL (7.4-10.4); NEUTROPHILS 63.3 % (40-80); PLATELET COUNT 206 10x3/uL (130-400); RBC 4.41 10x6/uL (4.00-5.40); RDW 13.1 % (11.5-14.5); WBC 7.8 10x3/uL (4.8-10.8)
[2018-05-24 07:49] LABS: ANION GAP 10.2 mmol/L (8-16); CALCIUM 8.9 mg/dL (8.5-10.1); CARBON DIOXIDE 32.5 mmol/L (21.0-32.0); CREATININE - SERUM 1.1 mg/dL (0.6-1.3); POTASSIUM - SERUM 3.7 mmol/L (3.5-5.1)
[2018-05-24] MEDS ORDERED: PROTONIX40 MG PO (08:31)
[2018-05-24] MEDS ORDERED: CARAFATE1 G PO (08:34)
[2018-05-24] MEDS ORDERED: VITAMIN D3400 UNI1 PO (08:35)
[2018-05-24] MEDS ORDERED: COREG6.25 MG PO (08:35)
[2018-05-24] MEDS ORDERED: EQUATE ALLERGY RELIE (08:36)
[2018-05-24] MEDS ORDERED: CALCIUM 600 +1 EAC3 (08:36)
[2018-05-24] MEDS ORDERED: MULTIPLE VITAMI1 TA1 PO (08:37)
[2018-05-24] MEDS ORDERED: MACRODANTIN50 MG PO (08:37)
[2018-05-24 08:45] VITALS: BP 146/80; Ht 162.6 cm; Wt 96.4 kg
== END 2018-05-24 12:22 | disposition home or self-care (01) ==
LOC: D.OPS 07:23
PROVIDERS: Anesthesiology
DX: K63.5 Polyp of colon (principal); K31.7 Polyp of stomach and duodenum; K57.30 Diverticulosis of large intestine without perforation or abscess without bleeding; J45.909 Unspecified asthma, uncomplicated; E03.9 Hypothyroidism, unspecified; K21.9 Gastro-esophageal reflux disease without esophagitis; Z01.812 Encounter for preprocedural laboratory examination

== ENCOUNTER 2018-06-01 06:17 | Inpatient (IN) | payer MEDICARE, OTHER ==
[~2018-06-01] VITALS: Ht 162.6 cm; Wt 97.3 kg
--- NOTE | ~2018-06-01 | HP ---
PATIENT: MARY ANNE UGARTE [facility] MEDICAL RECORD: [id number] ACCOUNT: [id number] LOCATION:D.MS [id number] : 43 ADMISSION DATE: 06/01/18 HISTORY AND PHYSICAL EXAMINATION DATE OF ADMISSION: 06/01/2018 CHIEF COMPLAINT: Fever. HISTORY OF PRESENT ILLNESS: The patient is a 72-year-old female who for the past 2-3 days has had elevated temperature. She has had fever, chills and sweats, presented to the Emergency Room where she was found to have leukocytosis as well as pyelonephritis. It was felt the patient should be admitted. PAST MEDICAL HISTORY: Significant that she has had hyperlipidemia. She has had depression. She has had anxiety. She has had some chronic low back pain, iron deficiency anemia, hypothyroidism, urinary incontinence, asthma, familial tremor. PAST SURGICAL HISTORY: The patient has had a tonsillectomy. She has also had fusion at L3, L4, L5; total right knee replacement. She has had a cervical spine fusion, carpal tunnel the left wrist. FAMILY HISTORY: Father with hypertension. Mother was lactose intolerant. ALLERGIES: No known drug allergies. MEDICATIONS: Include tramadol 50 mg 1-2 p.o. q.6 hours p.r.n. pain. She is on ProAir 2 puffs q.4 hours p.r.n. shortness of breath, primidone 50 mg 1 p.o. q.a.m. and 3 p.o. at bedtime, KCl 10 mEq once a day, Protonix 40 mg once a day, oxybutynin chloride 5 mg p.o. t.i.d., levothyroxine 50 mcg once a day, iron 325 once a day, hydroxyzine 25 mg one q.4-6 hours p.r.n. itching, gabapentin 400 mg 1 capsule 3 times daily, Valium 2 mg half tab p.o. b.i.d. for chronic vertigo, carvedilol 6.25 p.o. b.i.d., BuSpar 15 mg p.o. b.i.d., Wellbutrin 150 mg 1 p.o. daily, and atorvastatin 40 mg 1 p.o. daily. HABITS: None. SOCIAL HISTORY: The patient is , the mother of four, born and raised in [place] area. She denies any ethanol, tobacco use or abuse. REVIEW OF SYSTEMS: GENERAL: She denies any headaches, seizure or syncope. HEENT: She denies change in visual or auditory acuity. PULMONARY: She denies any shortness of breath, cough, congestion, history of TB, asthma or bronchitis. CARDIOVASCULAR: She has had no chest pain, palpitation, PND or orthopnea. GASTROINTESTINAL: No chronic nausea, vomiting, melena or hematochezia. GENITOURINARY: No urgency, frequency, or dysuria. PHYSICAL EXAMINATION: VITAL SIGNS: Today, temperature is 103.3, her blood pressure was 122/77, her pulse 133, O2 saturation 98%. GENERAL: She is alert. She is oriented times 3. HEENT: Head is normocephalic. No lesions. Ears: TMs clear. Eyes: Pupils HISTORY AND PHYSICAL [id number] SHANEL,MARY ANNE JAMES equal, round and reactive to light. Her extraocular movements are intact. Her nasal cavity, oral cavity and oropharynx are clear. NECK: Supple. There is no adenopathy. HEART: Tachycardic. LUNGS: Clear. ABDOMEN: Soft, bowel sounds positive. Suprapubic tenderness is present. EXTREMITIES: Lower extremities have no edema. LABORATORY DATA: White count is 13.4, hemoglobin 12.5, hematocrit 37.6, her platelets are 183. Sodium is 137, potassium 3.8, chloride 100, CO2 is 29, BUN is 19, creatinine 1.4, glucose of 157, alkaline phosphatase elevated at 154. Urinalysis shows 2+ blood, also has positive nitrites. She has 2+ leukocyte esterase with 5-10 rbc's per high power field, greater than 50 wbc's per high power field, moderate bacteria. ASSESSMENT: Pyelonephritis, leukocytosis secondary to pyelonephritis, iron deficiency anemia, hypertension and hyperlipidemia. PLAN: The patient is admitted. She will be placed on Rocephin 1 gram q.24 hours. Blood culture and urine cultures will be obtained. We will treat the fever. Continue all current medications. Continue to follow. TRANSINT:[id number] Voice Confirmation ID: [id number] DOCUMENT ID: [id number] CANDIDO NETTLES MD at 0631 CC: [id number] DICTATION DATE: 06/01/18 0936 RING CONDUCTOR: 06/01/18 1143 ADM IN [facility] [address] [place] [id number]
--- NOTE | ~2018-06-01 | DS ---
PATIENT:MARY ANNE UGARTE :43 MEDICAL RECORD: [id number] DISCHARGE SUMMARY ADMISSION DATE: 06/01/18 DISCHARGE DATE: 06/05/18 DATE OF ADMISSION: 06/01/2018 DATE OF DISCHARGE: 06/05/2018 ADMISSION DIAGNOSES: Pyelonephritis, leukocytosis secondary to pyelonephritis, and iron deficiency anemia, hypertension, hyperlipidemia. DISCHARGE DIAGNOSES: Pyelonephritis, leukocytosis secondary to pyelonephritis, and iron deficiency anemia. HOSPITAL COURSE: The patient was admitted through the Emergency Room with fever, chills, temperature 103.3, white count 13,400. Urine was positive for nitrites, leukocytes, many bacteria. Urine cultures revealed E. coli, sensitivities isolated. The patient is feeling much better, anxious to go home. PHYSICAL EXAMINATION: VITAL SIGNS ON DISCHARGE: Temperature 99.1, blood pressure 159/69, heart rate 85, respirations 17, O2 sats 93% room air. GENERAL: Alert and oriented. Anxious to go home. No acute distress. HEART: Regular rate and rhythm. LUNGS: Clear. ABDOMEN: Soft, nontender. Bowel sounds all 4 quadrants. EXTREMITIES: Present times 4. NEUROLOGIC: Intact. SKIN: Warm and dry. No rash. LABORATORY DATA: CBC on discharge, white count 7.3, hemoglobin 10.3, hematocrit 31.4, platelets 190. The patient is discharged to home on oral antibiotics after reviewing sensitivities for the E. coli isolated. She will complete a 7-day course. Follow up with Dr. Rosas in 10 days. We will resume her home medications. See chart for further details. TRANSINT:[id number] Voice Confirmation ID: [id number] DOCUMENT ID: [id number] JESSICA CHINCHILLA DO at 0744 CC: [id number] DICTATION DATE: 06/05/18 1205 YARN DUMPER: 06/05/18 1819 DIS IN 06/05/18 [id number] [place] [id number]
[~2018-06-01 06:17] MED LIST changes: +CALCIUM 600 +1 EAC3; +CARAFATE1 G PO; +COREG6.25 MG PO; +EQUATE ALLERGY RELIE; +MACRODANTIN50 MG PO; +MULTIPLE VITAMI1 TA1 PO; +PROTONIX40 MG PO; +VITAMIN D3400 UNI1 PO
[2018-06-01 06:50] LABS: BASOPHILS 0.1 % (0-2); EOSINOPHILS 0.3 % (0-7); HEMATOCRIT 37.6 % (36.0-48.0); HEMOGLOBIN 12.5 g/dL (12-16); IMMATURE GRANULOCYTES 0.3 % (0-5); LYMPHOCYTES 5.6 % (15-50); MCH 30.9 pg (26.0-34.0); MCHC 33.2 g/dL (31.0-37.0); MCV 92.8 fL (80.0-100.0); MEAN PLATELET VOLUME 10.8 fL (7.4-10.4); MONOCYTES 6.6 % (2-11); NEUTROPHILS 87.1 % (40-80); PLATELET COUNT 183 10x3/uL (130-400); RBC 4.05 10x6/uL (4.00-5.40); RDW 13.4 % (11.5-14.5); WBC 13.4 10x3/uL (4.8-10.8)
[2018-06-01 06:58] LABS: APPEARANCE HAZY (CLEAR); BILIRUBIN NEGATIVE (NEGATIVE); COLOR DY (YELLOW); GLUCOSE NEGATIVE (NEGATIVE); KETONE NEGATIVE (NEGATIVE); NITRITE POSITIVE (NEGATIVE); PROTEIN 3+ mg/dL (NEGATIVE); UROBILINOGEN NORMAL (NORMAL)
[2018-06-01 07:03] LABS: ALBUMIN 3.1 g/dL (3.4-5.0); ANION GAP 11.5 mmol/L (8-16); BILIRUBIN - TOTAL 0.85 mg/dL (0.2-1.3); CARBON DIOXIDE 29.3 mmol/L (21.0-32.0); CREATININE - SERUM 1.4 mg/dL (0.6-1.3); POTASSIUM - SERUM 3.8 mmol/L (3.5-5.1); PROTEIN - SERUM 7.4 g/dL (6.4-8.2)
[2018-06-01 07:04] LABS: BACTERIA MODERATE /hpf (NONE SEEN); EPITHELIAL CELLS 0-5 /hpf (0-5); MUCUS <1+ /lpf (NONE SEEN); WHITE CELLS - URINE >50 /hpf (0-5)
[2018-06-01 09:43] VITALS: BP 127/62
[2018-06-01 14:39] VITALS: BP 182/103; Ht 162.6 cm; Wt 97.3 kg
[2018-06-01 22:12] VITALS: BP 153/78
[2018-06-02 00:54] VITALS: BP 141/69
[2018-06-02 04:47] LABS: BASOPHILS 0.1 % (0-2); EOSINOPHILS 0.1 % (0-7); HEMATOCRIT 34.7 % (36.0-48.0); HEMOGLOBIN 11.9 g/dL (12-16); IMMATURE GRANULOCYTES 0.3 % (0-5); LYMPHOCYTES 7.4 % (15-50); MCH 31.8 pg (26.0-34.0); MCHC 34.3 g/dL (31.0-37.0); MCV 92.8 fL (80.0-100.0); MEAN PLATELET VOLUME 11.4 fL (7.4-10.4); MONOCYTES 6.9 % (2-11); NEUTROPHILS 85.2 % (40-80); PLATELET COUNT 201 10x3/uL (130-400); RBC 3.74 10x6/uL (4.00-5.40); RDW 13.5 % (11.5-14.5); WBC 15.4 10x3/uL (4.8-10.8)
[2018-06-02 05:17] LABS: CALCIUM 8.7 mg/dL (8.5-10.1); CREATININE - SERUM 1.1 mg/dL (0.6-1.3)
[2018-06-02 05:19] LABS: POTASSIUM - SERUM 3.1 mmol/L (3.5-5.1)
[2018-06-02 05:23] LABS: ANION GAP 16.1 mmol/L (8-16)
[2018-06-02 09:15] VITALS: BP 145/77
[2018-06-02 11:47] VITALS: BP 124/64
[2018-06-02 16:02] VITALS: BP 138/58
[2018-06-02 20:06] VITALS: BP 131/60
[2018-06-02 23:21] VITALS: BP 134/61
[2018-06-03 05:19] LABS: BASOPHILS 0.2 % (0-2); EOSINOPHILS 1.1 % (0-7); HEMATOCRIT 30.5 % (36.0-48.0); IMMATURE GRANULOCYTES 0.1 % (0-5); LYMPHOCYTES 16.4 % (15-50); MCH 30.6 pg (26.0-34.0); MCHC 32.8 g/dL (31.0-37.0); MCV 93.3 fL (80.0-100.0); MEAN PLATELET VOLUME 11.2 fL (7.4-10.4); MONOCYTES 6.5 % (2-11); NEUTROPHILS 75.7 % (40-80); PLATELET COUNT 180 10x3/uL (130-400); RBC 3.27 10x6/uL (4.00-5.40); RDW 13.5 % (11.5-14.5)
[2018-06-03 05:20] LABS: WBC 9.3 10x3/uL (4.8-10.8)
[2018-06-03 05:23] LABS: ANION GAP 11.5 mmol/L (8-16); CALCIUM 8.3 mg/dL (8.5-10.1); CARBON DIOXIDE 26.6 mmol/L (21.0-32.0); CREATININE - SERUM 1.2 mg/dL (0.6-1.3); POTASSIUM - SERUM 3.1 mmol/L (3.5-5.1)
[2018-06-03 06:07] VITALS: BP 143/71
[2018-06-03 09:20] VITALS: BP 153/76
[2018-06-03 14:38] VITALS: BP 120/64
[2018-06-03 17:07] VITALS: BP 131/60
[2018-06-03 20:42] VITALS: BP 141/68
[2018-06-04 00:28] VITALS: BP 117/64
[2018-06-04 04:10] VITALS: BP 135/57
[2018-06-04 06:28] LABS: BASOPHILS 0.1 % (0-2); EOSINOPHILS 3.4 % (0-7); HEMATOCRIT 32.2 % (36.0-48.0); HEMOGLOBIN 10.4 g/dL (12-16); LYMPHOCYTES 24.5 % (15-50); MCH 30.1 pg (26.0-34.0); MCHC 32.3 g/dL (31.0-37.0); MCV 93.3 fL (80.0-100.0); MEAN PLATELET VOLUME 10.9 fL (7.4-10.4); MONOCYTES 5.8 % (2-11); NEUTROPHILS 66.2 % (40-80); PLATELET COUNT 179 10x3/uL (130-400); RBC 3.45 10x6/uL (4.00-5.40); RDW 13.4 % (11.5-14.5); WBC 7.1 10x3/uL (4.8-10.8)
[2018-06-04 07:06] LABS: ALBUMIN 2.2 g/dL (3.4-5.0); ANION GAP 12.4 mmol/L (8-16); BILIRUBIN - TOTAL 0.19 mg/dL (0.2-1.3); CALCIUM 8.4 mg/dL (8.5-10.1); POTASSIUM - SERUM 3.4 mmol/L (3.5-5.1); PROTEIN - SERUM 6.5 g/dL (6.4-8.2)
[2018-06-04 08:30] VITALS: BP 137/75
[2018-06-04 12:35] VITALS: BP 121/66
[2018-06-04 16:14] VITALS: BP 154/82
[2018-06-04 22:18] VITALS: BP 145/72
[2018-06-05 04:10] VITALS: BP 130/58
[2018-06-05 06:18] LABS: BASOPHILS 0.1 % (0-2); EOSINOPHILS 2.6 % (0-7); HEMATOCRIT 31.4 % (36.0-48.0); HEMOGLOBIN 10.3 g/dL (12-16); IMMATURE GRANULOCYTES 0.3 % (0-5); LYMPHOCYTES 20.3 % (15-50); MCH 30.2 pg (26.0-34.0); MCHC 32.8 g/dL (31.0-37.0); MCV 92.1 fL (80.0-100.0); MONOCYTES 6.9 % (2-11); NEUTROPHILS 69.8 % (40-80); PLATELET COUNT 190 10x3/uL (130-400); RBC 3.41 10x6/uL (4.00-5.40); RDW 13.3 % (11.5-14.5); WBC 7.3 10x3/uL (4.8-10.8)
[2018-06-05 06:37] LABS: ANION GAP 10.3 mmol/L (8-16); CALCIUM 8.4 mg/dL (8.5-10.1); CREATININE - SERUM 0.9 mg/dL (0.6-1.3); POTASSIUM - SERUM 3.3 mmol/L (3.5-5.1)
[2018-06-05 07:52] VITALS: BP 159/69
[2018-06-05] MEDS ORDERED: CEFUROXIME250 MG PO (11:59)
[2018-06-05 12:16] VITALS: BP 138/69
== END 2018-06-05 15:09 | disposition home health service (06) | DRG 872 ==
LOC: D.ER 06:17 → D.EDHOLD 09:25 → D.MS 09:25
PROVIDERS: Family Medicine
DX: A41.9 Sepsis, unspecified organism (principal); N12 Tubulo-interstitial nephritis, not specified as acute or chronic; D50.9 Iron deficiency anemia, unspecified; I10 Essential (primary) hypertension; E03.9 Hypothyroidism, unspecified; E78.5 Hyperlipidemia, unspecified

== ENCOUNTER 2019-04-06 19:00 | Outpatient (CLI) | payer MEDICARE, OTHER ==
[2018-06-01 14:39] VITALS: BMI 36.8
== END 2019-04-06 23:59 | disposition home or self-care (01) ==
LOC: D.MAMMO 19:00
PROVIDERS: ATTEND Family Medicine
DX: Z12.31 Encounter for screening mammogram for malignant neoplasm of breast (principal)

== ENCOUNTER 2020-06-07 16:30 | Outpatient (CLI) | payer MEDICARE, BC ==
[2018-06-01 14:39] VITALS: BMI 36.8
== END 2020-06-07 16:35 ==
LOC: D.MAMMO 16:30
PROVIDERS: ATTEND Family Medicine
DX: Z12.31 Encounter for screening mammogram for malignant neoplasm of breast (principal)

== ENCOUNTER 2020-07-10 17:00 | Outpatient (CLI) | payer MEDICARE, BC ==
[2018-06-01 14:39] VITALS: BMI 36.8
== END 2020-07-10 23:59 | disposition home or self-care (01) ==
LOC: D.MAMMO 17:00
PROVIDERS: ATTEND Family Medicine
DX: R92.8 Other abnormal and inconclusive findings on diagnostic imaging of breast (principal)